=== PATIENT | male | born 1990 ===

== ENCOUNTER 2019-09-14 10:37 | Emergency (ER) | payer SELFPAY ==
[~2019-09-14] VITALS: Ht 185.4 cm; Wt 90.7 kg
== END 2019-09-14 12:48 | disposition left against medical advice (07) ==
LOC: ER 10:37
DX: Z53.21 Procedure and treatment not carried out due to patient leaving prior to being seen by health care provider (principal); R07.9 Chest pain, unspecified
CPT/HCPCS: 93005; 93010; 99283-25